=== PATIENT | male | born 1945 | race Caucasian/White ===

== ENCOUNTER 2020-09-01 12:16 | Inpatient (IN) | payer MEDICARE, OTHER ==
[2020-09-01] MEDS ORDERED: Lorazepam 2 MG/ML VIAL ONE (12:39)
--- NOTE | 2020-09-01 12:57 | RAD ---
XR Chest 1 View Portable HISTORY: Dyspnea COMPARISON: 07/16/2014 FINDINGS: The heart size is normal. The aorta is tortuous. The lungs are well expanded without focal areas of consolidation, pneumothorax or pleural effusions. IMPRESSION: No radiographic evidence of acute cardiopulmonary process.
[2020-09-01 13:01] LABS: #Eosinphils 0.1 thou/uL (0.0-0.7); #Lymphocytes 1.9 thou/uL (1.20-3.40); #Monocytes 0.5 thou/uL (0.11-0.59); #Neutrophils 3.5 thou/uL (1.40-6.50); %Basophils 0.6 % (0.0-1.0); %Eosinophils 1.9 % (0.0-10.0); %Lymphocytes 30.7 % (21.0-51.0); %Monocytes 8.8 % (0.0-10.0); %Neutrophils 57.9 % (42.0-75.0); Hemoglobin 14.5 g/dL (14.0-18.0); Mean Corpuscular HGB CONC 33.4 g/dL (32.0-36.0); Mean Corpuscular Hemoglobin 30.9 pg (27.0-31.0); Mean Corpuscular Volume 92.4 fL (78.0-98.0); Mean Platelet Volume 8.8 fL (7.4-10.4); Platelet Count 201 thou/uL (130-400); RBC Distribution Width 13.3 % (11.5-14.5); Red Blood Cell (RBC) Count 4.68 mill/uL (4.70-6.10)
[2020-09-01 13:23] LABS: ALT (SGPT) 19 U/L (8-55); AST (SGOT) 27 U/L (5-34); Albumin 4.6 g/dL (3.4-4.8); Alkaline Phosphatase 96 U/L (40-110); Anion Gap 18 mmol/L (10-20); BUN (Urea Nitrogen) 14 mg/dL (8.4-25.7); Bilirubin, Total 2.1 mg/dL (0.2-1.2); Calc. Creatinine Clearance 0 mL/min (70-130); Calcium 9.1 mg/dL (7.8-10.44); Carbon Dioxide 20 mmol/L (23-31); Chloride 106 mmol/L (98-107); Estimated GFR-MDRD 61; Globulin 2.5 g/dL (2.4-3.5); Glucose 104 mg/dL (83-110); Magnesium 1.9 mg/dL (1.6-2.6); Potassium 3.9 mmol/L (3.5-5.1); Protein, Total 7.1 g/dL (5.8-8.1); Sodium 140 mmol/L (136-145)
[2020-09-01 16:55] VITALS: BMI 26.1
[2020-09-01 16:57] LABS: Troponin I 0.011 ng/mL (< 0.028)
--- NOTE | 2020-09-01 18:31 | PDOC.HHP ---
Hospitalist HPI - History of Present Illness palpitation History of Present Illness: The patient is a pleasant 74 years old gentleman, who has significant past medical history of CAD with PCI, dyslipidemia, history of prostate cancer with s/p prostectomy, paroxysmal atrial fib. He presented to ED with complaint of palpitation and presyncopal episode started around 9 AM this morning while he was talking to his . Patient report that sometimes he feels like his heart was racing and skipping beat. Symptom associated with some sort of breath and lightheadedness. He did not pass out completely. According to ER physician, EMS report that his blood pressure was brought down to the 80s, he was given IV fluid by EMS. Given his symptomatology, hospitalist was asked to admit the patient for further evaluation and management. He denies any chest pain at present. No fever no cough. No recent travel history. No visual disturbance, focal weakness or other associated neurological symptoms. Patient stated that he had history of irregular heart rate, and records also showed that he had paroxysmal atrial fib. He said at one point he was on Eliquis; however, his meat cutting block repairer took him off few years ago as he has been remaining in normal sinus rhythm. Initial workup with ED, trop neg, BNP wnl. EKG shows RBBB, CXR was unremarkable. Hospitalist ROS - Review of Systems Other: Complete review of systems have been assessed and discussed with the patient. Negative and positive pertinent symptoms noted in the HPI; ALL other systems are reviewed and negative. Hospitalist History - Past Medical History Cardiac: reports: AFIB, CAD, Hyperlipidemia - Past Surgical History Past Surgical History: reports: Total Knee Replacement, Other (Prostatectomy) - Family History Family History: reports: no pertinent history - Social History Smoking Status: Never smoker Alcohol: reports: None Drugs: reports: none Living Situation: With Family Domestic Violence: Negative Activity level: independent ambulation - Exam General Appearance: NAD Eye: PERRL ENT: normocephalic atraumatic Neck: supple Heart: RRR, no murmur Respiratory: CTAB Gastrointestinal: soft Extremities: no cyanosis Skin: normal turgor Neurological: cranial nerve grossly intact Hospitalist Results - Labs Result Diagrams: 09/01/20 12:43 09/01/20 12:42 Lab results: WBC 6.0 thou/uL (4.8-10.8) 09/01/20 12:43 Hgb 14.5 g/dL (14.0-18.0) 09/01/20 12:43 Hct 43.3 % (42.0-52.0) 09/01/20 12:43 MCV 92.4 fL (78.0-98.0) 09/01/20 12:43 Plt Count 201 thou/uL (130-400) 09/01/20 12:43 Neutrophils % 57.9 % (42.0-75.0) 09/01/20 12:43 Sodium 140 mmol/L (136-145) 09/01/20 12:42 Potassium 3.9 mmol/L (3.5-5.1) 09/01/20 12:42 Chloride 106 mmol/L (98-107) 09/01/20 12:42 Carbon Dioxide 20 mmol/L (23-31) L 09/01/20 12:42 BUN 14 mg/dL (8.4-25.7) 09/01/20 12:42 Creatinine 1.17 mg/dL (0.7-1.3) 09/01/20 12:42 Glucose 104 mg/dL (83-110) 09/01/20 12:42 Calcium 9.1 mg/dL (7.8-10.44) 09/01/20 12:42 Total Bilirubin 2.1 mg/dL (0.2-1.2) H 09/01/20 12:42 AST 27 U/L (5-34) 09/01/20 12:42 ALT 19 U/L (8-55) 09/01/20 12:42 Alkaline Phosphatase 96 U/L (40-110) 09/01/20 12:42 Troponin I 0.011 ng/mL (< 0.028) 09/01/20 16:24 B-Natriuretic Peptide 10.6 pg/mL (0-100) 09/01/20 12:43 Serum Total Protein 7.1 g/dL (5.8-8.1) 09/01/20 12:42 Albumin 4.6 g/dL (3.4-4.8) 09/01/20 12:42 - Radiology Interpretation Chest x-ray Status: image reviewed by me Hospitalist H&P A/P - Plan Plan: The patient is a pleasant 74 years old gentleman who has significant past medical histories of CAD with PCI x1, paroxysmal atrial fib, dyslipidemia, prostate cancer with status post prostatectomy, who presented to ED with acute onset of presyncopal episode, and palpitation. Presyncope - likely cardiogenic in nature, arrhythmia. Doubt [employer] related as patient is nonfocal. --admit to tele for obs --serial enzymes. 2D echo. If enzyme remains neg, requests for nuclear stress test in AM as he hasn't have one done recently --if tele is unrevealing, may need Holter or Event monitor at discharge --Consult his meat cutting block repairer, Dr. Figueroa in AM CAD with hx of PCI --mgt as above. resume home med Dyslipidemia --check lipid, cont home meds Hx of Afib --cont ASA, pt reports his meat cutting block repairer took him off of Eliquis few years ago
[2020-09-01 19:14] LABS: Troponin I 0.012 ng/mL (< 0.028)
[2020-09-01] MEDS: Aspirin 325 MG TAB PO SCH (20:54)
[2020-09-01] MEDS: Atorvastatin Calcium 40 MG TAB PO SCH (20:54)
[2020-09-01] MEDS: Magnesium Oxide 250 MG TAB PO SCH (20:54)
[2020-09-02 05:15] LABS: #Eosinphils 0.1 thou/uL (0.0-0.7); #Lymphocytes 1.3 thou/uL (1.20-3.40); #Monocytes 0.4 thou/uL (0.11-0.59); #Neutrophils 1.9 thou/uL (1.40-6.50); %Basophils 0.9 % (0.0-1.0); %Eosinophils 3.5 % (0.0-10.0); %Lymphocytes 34.1 % (21.0-51.0); %Monocytes 10.8 % (0.0-10.0); %Neutrophils 50.7 % (42.0-75.0); Hemoglobin 13.4 g/dL (14.0-18.0); Mean Corpuscular HGB CONC 33.2 g/dL (32.0-36.0); Mean Corpuscular Volume 93.3 fL (78.0-98.0); Mean Platelet Volume 8.6 fL (7.4-10.4); Platelet Count 173 thou/uL (130-400); RBC Distribution Width 13.4 % (11.5-14.5); Red Blood Cell (RBC) Count 4.33 mill/uL (4.70-6.10); White Blood Cell (WBC) Count 3.8 thou/uL (4.8-10.8)
[2020-09-02 05:37] LABS: Anion Gap 12 mmol/L (10-20); BUN (Urea Nitrogen) 11 mg/dL (8.4-25.7); Calc. Creatinine Clearance 83 mL/min (70-130); Calcium 8.3 mg/dL (7.8-10.44); Carbon Dioxide 24 mmol/L (23-31); Cardiac Risk 2.5 (Less than 4.5); Chloride 107 mmol/L (98-107); Cholesterol 117 mg/dl (< 200 Desired); Estimated GFR-MDRD 84; Glucose 112 mg/dL (83-110); HDL Cholesterol 47 mg/dL (>60 Neg Risk); LDL Cholesterol, Calculated 51 mg/dL; Potassium 4.4 mmol/L (3.5-5.1); Sodium 139 mmol/L (136-145); Triglycerides 93 mg/dL (Less than 150)
--- NOTE | 2020-09-02 12:01 | NM ---
EXAM: NM Cardiac Stress W EF WF PROVIDED CLINICAL HISTORY: Chest pain. History of coronary artery disease. Post coronary artery stent. COMPARISON: None FINDINGS: No significant reversible defect is seen between the stress and resting acquisitions. Gated images sh ow normal ventricular wall motion and wall thickening. The calculated left ventricular ejection fraction is 78%. IMPRESSION: 1. No significant reversible defect seen to suggest ischemia. 2. Normal LVEF of 78%.
[2020-09-02 12:08] LABS: SARS-CoV-2 MS2 Positive; SARS-CoV-2 N Gene Negative; SARS-CoV-2 S Gene Negative; SARS-CoV-2 by NAA Not Detected (NotDetected); SARS-CoV-2 orf1ab Negative
[2020-09-02] MEDS ORDERED: ADENOSINE 60 MG/20 ML VIAL ONE (12:35)
--- NOTE | 2020-09-02 13:21 | CON ---
DATE OF CONSULTATION: REASON FOR CONSULTATION: Palpitations and shortness of breath. HISTORY OF PRESENT ILLNESS: Mr. Sage is a pleasant 74-year-old gentleman, who is a patient of Dr. Mayra Figueroa. He has a history of stent placement to the right coronary artery. He recently presented with shortness of breath and palpitations. He states he has had PVCs in the past. This is a prolonged episode. No chest pain or pressure noted. His CK troponin so far have been negative. PAST MEDICAL HISTORY: Hyperlipidemia, acid reflux, CAD, status post stent placement. HOME MEDICATIONS: Include; 1. Nitroglycerin. 2. CoQ10. 3. Atorvastatin. 4. Zetia. 5. Zyrtec. 6. Magnesium. 7. Aspirin. 8. Hydroxychloroquine. 9. Prilosec. 10. Vitamin D. 11. Amoxicillin. PAST SURGICAL HISTORY: Basal cell cancer, knee surgery, teeth extraction. SOCIAL HISTORY: No current tobacco or alcohol use. ALLERGIES: ETHAMBUTOL. REVIEW OF SYSTEMS: Ten-point review of systems is reviewed and as above, otherwise negative. PHYSICAL EXAMINATION: GENERAL: Patient is a pleasant male, who is in no acute distress. The patient appears their stated age. VITAL SIGNS: Blood pressure 151/76, pulse 86, and temperature 97.9. NEUROLOGIC: The patient is alert and oriented x3 with no focal neurologic deficits. HEENT: Sclerae without icterus. Mouth has moist mucous membranes with normal pallor. NECK: No JVD. Carotid upstroke brisk. No bruits bilaterally. LUNGS: Clear to auscultation with unlabored respirations. BACK: No scoliosis or kyphosis. CARDIAC: Regular rate and rhythm with normal S1 and S2. No S3 or S4 noted. No significant rubs, murmurs, thrills, or gallops noted throughout the precordium. PMI is not displaced. There is no parasternal heave. ABDOMEN: Soft, nontender, nondistended. No peritoneal signs present. No hepatosplenomegaly. No abnormal striae. EXTREMITIES: 2+ femoral and 2+ dorsalis pedis pulses. No cyanosis, clubbing, or edema. SKIN: No gross abnormalities. PERTINENT LABORATORY DATA: Hemoglobin 13.4. Creatinine 0.89. Total bilirubin 2.1. Troponin negative. EKG shows normal sinus rhythm with right bundle-branch block. No EKG for comparison. IMPRESSION: 1. Palpitations. 2. Coronary artery disease. 3. Status post stent placement. RECOMMENDATIONS: Mr. Sage's status is stable. He has no current symptoms. He did develop transient third-degree AV block during adenosine infusion in addition to a four beats of nonsustained VT. These were not associated with symptoms. At this point, we will continue close observation. His recent stress study was negative for ischemia with normal LVEF. I would recommend adding low-dose beta-eddie therapy given normal LVEF. He has no current symptoms suggesting angina and mainly was admitted for palpitations. His LVEF is normal. We would recommend observation overnight. If negative, would be okay for discharge with close outpatient followup and a 3-week event recorder. Job ID: [id number]
[2020-09-02] MEDS: Enoxaparin Sodium 40 MG/0.4 ML SYRINGE SC SCH ×2 (13:24→13:30)
[2020-09-02] MEDS: Ezetimibe 10 MG TAB PO SCH (13:25)
[2020-09-02] MEDS: Cholecalciferol 1,000 UNITS (25 MCG) TAB PO SCH (13:25)
--- NOTE | 2020-09-02 15:39 | PDOC.HOSPP ---
- Subjective Encounter Date: 09/02/20 Encounter Time: 15:38 Subjective: Mr. Sage was seen today in follow up of pre-syncope. He says he feels fine. No complaints. - Objective Vital Signs & Weight: Vital Signs (12 hours) Temp Pulse Resp BP Pulse Ox 09/02/20 12:00 97.9 F 86 20 151/76 H 97 09/02/20 07:38 98.0 F 68 20 138/83 97 09/02/20 04:06 97.7 F 71 16 137/72 100 Weight Weight 177 lb I&O: 09/01/20 09/02/20 09/03/20 06:59 06:59 06:59 Intake Total 250 Balance 250 Result Diagrams: 09/02/20 05:01 09/02/20 05:01 Hospitalist ROS - Medication Medications: Active Medications Generic Name Dose Route Start Last Admin Trade Name Freq PRN Reason Stop Dose Admin Aspirin 325 mg 09/01/20 21:00 09/01/20 20:54 Aspirin 325 Mg Tab PO 325 mg HS JONO Administration Atorvastatin Calcium 40 mg 09/01/20 21:00 09/01/20 20:54 Atorvastatin Calcium 40 Mg Tab PO 40 mg HS JONO Administration Cholecalciferol 5,000 units 09/02/20 09:00 09/02/20 13:25 Cholecalciferol 1,000 Units (25 Mcg) Tab PO 5,000 units DAILY JONO Administration Ezetimibe 10 mg 09/02/20 09:00 09/02/20 13:25 Ezetimibe 10 Mg Tab PO 10 mg DAILY JONO Administration Enoxaparin Sodium 40 mg 09/02/20 09:00 09/02/20 13:30 Enoxaparin Sodium 40 Mg/0.4 Ml Syringe SC Not Given 0900 JONO Magnesium Oxide 500 mg 09/01/20 21:00 09/01/20 20:54 Magnesium Oxide 250 Mg Tab PO 500 mg HS JONO Administration Pantoprazole Sodium 40 mg 09/02/20 09:00 09/02/20 13:25 Pantoprazole 40 Mg Tab PO 40 mg DAILY JONO Administration - Exam Eye: PERRL, anicteric sclera Heart: RRR, no murmur, no gallops, no rubs, normal peripheral pulses Respiratory: CTAB, no wheezes, no rales, no ronchi, normal chest expansion, no tachypnea, normal percussion Gastrointestinal: soft, non-tender, non-distended, normal bowel sounds, no palpable masses, no hepatomegaly Extremities: no cyanosis, no edema Hosp A/P (1) Pre-syncope Status: Acute (2) Coronary artery disease Code(s): I25.10 - ATHSCL HEART DISEASE OF [place] CORONARY ARTERY W/O ANG PCTRS Status: Chronic (3) HTN (hypertension) Code(s): I10 - ESSENTIAL (PRIMARY) HYPERTENSION Status: Chronic - Plan * Pre-syncope- possibly cardiogenic. He has been placed on Metoprolol * Stress test was negative * CAD - stable * Cardiology input appreciated * HTN- blood pressure is stable
[2020-09-02] MEDS: Magnesium Oxide 250 MG TAB PO SCH (20:37)
[2020-09-02] MEDS: Atorvastatin Calcium 40 MG TAB PO SCH (20:37)
[2020-09-02] MEDS: Aspirin 325 MG TAB PO SCH (20:37)
[2020-09-03] MEDS: Ezetimibe 10 MG TAB PO SCH (08:14)
[2020-09-03] MEDS: Cholecalciferol 1,000 UNITS (25 MCG) TAB PO SCH (08:14)
[2020-09-03] MEDS: Enoxaparin Sodium 40 MG/0.4 ML SYRINGE SC SCH (08:17)
--- NOTE | 2020-09-03 10:39 | PDOC.CPN ---
- Subjective Date: 09/03/20 Time: 10:30 Interval history: No complaints. Palpitations much better. Wanting to go home. - Review of Systems General: denies: fever/chills, weight/appetite/sleep changes, night sweats, fatigue Respiratory: denies: cough, congestion, shortness of breath, exercise intolerance Cardiovascular: denies: chest pain, palpitation, edema, paroxysmal nocturnal dyspnea, orthopnea Gastrointestinal: denies: nausea, vomiting, diarrhea, constipation, abd pain, GI bleeding Musculoskeletal: denies: pain, tenderness, stiffness, swelling, ar thritis/arthralgias Neurological: denies: numbness, syncope, seizure, weakness - Objective Allergies/Adverse Reactions: Allergies Allergy/AdvReac Type Severity Reaction Status Date / Time ethambutol Allergy Mild Rash Verified 12/08/14 17:22 Visit Medications: Current Medications Aspirin (Aspirin 325 Mg Tab) 325 mg PO [facility] Last Admin: 09/02/20 20:37 Dose: 325 mg Documented by: Atorvastatin Calcium (Atorvastatin Calcium 40 Mg Tab) 40 mg PO [facility] Last Admin: 09/02/20 20:37 Dose: 40 mg Documented by: Cholecalciferol (Cholecalciferol 1,000 Units (25 Mcg) Tab) 5,000 units PO DAILY [facility] Last Admin: 09/03/20 08:14 Dose: 5,000 units Documented by: Ezetimibe (Ezetimibe 10 Mg Tab) 10 mg PO DAILY [facility] Last Admin: 09/03/20 08:14 Dose: 10 mg Documented by: Enoxaparin Sodium (Enoxaparin Sodium 40 Mg/0.4 Ml Syringe) 40 mg SC 0900 [facility] Last Admin: 09/03/20 08:17 Dose: Not Given Documented by: Magnesium Oxide (Magnesium Oxide 250 Mg Tab) 500 mg PO HS [facility] Last Admin: 09/02/20 20:37 Dose: 500 mg Documented by: Metoprolol Succinate (Metoprolol Succinate Xl 25 Mg Tab) 25 mg PO DAILY [facility] Last Admin: 09/03/20 08:15 Dose: 25 mg Documented by: Pantoprazole Sodium (Pantoprazole 40 Mg Tab) 40 mg PO DAILY [facility] Last Admin: 09/03/20 08:15 Dose: 40 mg Documented by: Vital Signs & Weight: Vital Signs Temp Pulse Resp BP BP Pulse Ox 09/03/20 06:50 97.7 F 64 16 122/78 98 09/03/20 03:11 97.9 F 67 18 118/63 94 L 09/03/20 00:26 97.7 F 65 18 125/65 98 Weight 177 lb - Physical Exam General: alert & oriented x3, appears well, no apparent distress Neuro: grossly intact Extremities: no cyanosis, no clubbing, no edema Skin: clear Musculoskeletal: no pain - Labs Result Diagrams: 09/02/20 05:01 09/02/20 05:01 Troponin/CKMB Troponin I 0.012 ng/mL (< 0.028) 09/01/20 18:36 - Assessment/Plan Assessment/Plan: 1. PVCs 2. Palpitations Recent normal stress and normal EF. On low-dose bblocker. Ok for discharge from my standpoint. Will f/u in 1-2 weeks as outpatient.
[2020-09-03 11:16] VITALS: BP 128/71; TEMP 97.5
--- NOTE | 2020-09-03 19:27 | DIS ---
DATE OF ADMISSION: 09/02/2020 DATE OF DISCHARGE: 09/03/2020 DISCHARGE DIAGNOSES: 1. Presyncope. 2. Coronary artery disease, status post PCI. 3. Dyslipidemia. 4. History of atrial fibrillation. 5. Premature ventricular contractions. 6. Palpitations. CONSULTATIONS: Cardiology. PROCEDURES DONE: None. HOSPITAL COURSE: Mr. Shailesh Sage is a 74-year-old gentleman with past medical history of coronary artery disease, status post PCI; dyslipidemia; history of prostate cancer, status post prostatectomy; paroxysmal atrial fibrillation, presented to emergency room with complaints of palpitations and presyncopal episodes on the morning of presentation. The patient felt his heart was racing. He had shortness of breath and lightheadedness. He did not have any syncope, but felt that he was going to have syncope. Upon presentation to the emergency room, EKG showed right BBB. Chest x-ray was unremarkable. The patient was admitted for further evaluation. Cardiology was consulted. The patient had a stress test that was negative. An echocardiogram was done and is pending. The patient was seen by Cardiology, who recommended starting the patient on a beta eddie to control his PVCs and palpitations. They also recommended, given normal ejection fraction on stress and a normal stress test, that patient could be discharged and will follow up with them in the next 1 to 2 weeks. Currently, the patient is stable at this time and will be discharged home. DISCHARGE PHYSICAL EXAMINATION: VITAL SIGNS: Temperature is 97.5, blood pressure is 128/71, respiratory rate 16, oxygen saturation 97%. GENERAL: Elderly gentleman, in no acute distress. HEENT: Not pale. No jaundice. Pupils are equal and reactive to light and accommodation. Extraocular movements are intact. NECK: Supple. No JVD. No thyromegaly. No bruits. CARDIOVASCULAR SYSTEM: First and second heart sounds are heard. No murmurs, rubs, or gallops. RESPIRATORY SYSTEM: Good air entry bilaterally. No crackles. No rales. No wheezes. ABDOMEN: Bowel sounds are present. Nondistended. Nontender. EXTREMITIES: No cyanosis. No clubbing. No edema. MEDICATIONS: Kindly see medication reconciliation list. DISPOSITION: Patient is discharged today. He will follow up with his PCP as previously scheduled. He will also followup with Cardiology in the next 1 to 2 weeks. Job ID: [id number]
== END 2020-09-03 12:15 | disposition home or self-care (01) | DRG 310 ==
LOC: ERS 12:16 → 2SW 16:13 → OBSVTOIN 09-02 15:30 → 2NO 09-02 16:39
PROVIDERS: ADMIT Family Medicine; ATTEND Family Medicine
DX: I49.3 Ventricular premature depolarization (principal); E78.5 Hyperlipidemia, unspecified; I25.10 Atherosclerotic heart disease of native coronary artery without angina pectoris; I48.0 Paroxysmal atrial fibrillation; I45.10 Unspecified right bundle-branch block; Z96.659 Presence of unspecified artificial knee joint; Z20.828 Contact with and (suspected) exposure to other viral communicable diseases; I10 Essential (primary) hypertension; Z79.899 Other long term (current) drug therapy
CPT/HCPCS: 36415; 71045; 78452; 80048; 80053; 80061; 83735; 83880; 84484; 85025; 87635; 93005; 93017; 93306; 94760; 96361; 96374; A9500; G0378; J0153; J1650; J2060; U0003

== ENCOUNTER 2024-09-15 10:33 | Outpatient (CLI) | payer MEDICARE ==
[2024-09-15] MEDS ORDERED: Iopamidol 370 76% 100 ML VIAL ONE (10:57)
== END 2024-09-15 10:34 | disposition home or self-care (01) ==
LOC: BICCT 10:33
PROVIDERS: ATTEND Internal Medicine Cardiovascular Disease
DX: I71.40 Abdominal aortic aneurysm, without rupture, unspecified (principal); K57.30 Diverticulosis of large intestine without perforation or abscess without bleeding; I70.8 Atherosclerosis of other arteries; R19.03 Right lower quadrant abdominal swelling, mass and lump
CPT/HCPCS: 74175; 82565; Q9967